=== PATIENT | female | born 1950 | race Two or more races ===

== ENCOUNTER 2019-06-21 07:31 | Outpatient (CLI) | payer OTHER ==
[~2019-06-21] VITALS: Ht 165.1 cm; Wt 127.0 kg
[~2019-06-21 07:31] MED LIST: CATAFLAM50 MG PO; CLONAZEPAM0.5 MG; COZAAR25 MG; NORVASC5 MG; RANITIDINE HCL300 M1; ZOCOR40 MG; ZOLOFT100 MG
[2019-06-21] MEDS ORDERED: LIPO-FLAVONOID1 EACH PO (10:03)
[2019-06-21] MEDS ORDERED: FLONASE16 GM NASAL (10:05)
== END 2019-06-21 13:00 | disposition home or self-care (01) ==
LOC: OFIC 805 07:31
DX: H91.8X3 Other specified hearing loss, bilateral (principal); R42 Dizziness and giddiness; H93.13 Tinnitus, bilateral

== ENCOUNTER 2019-07-12 13:10 | Emergency (ER) | payer OTHER ==
[~2019-07-12] VITALS: Ht 167.6 cm; Wt 122.5 kg
[~2019-07-12 13:10] MED LIST changes: +FLONASE16 GM NASAL; +LIPO-FLAVONOID1 EACH PO
== END 2019-07-12 23:27 | disposition home or self-care (01) ==
LOC: ER 13:10
DX: S43.085A Other dislocation of left shoulder joint, initial encounter (principal); M25.512 Pain in left shoulder; X50.0XXA Overexertion from strenuous movement or load, initial encounter; Y93.B2 Activity, push-ups, pull-ups, sit-ups; Y92.89 Other specified places as the place of occurrence of the external cause; Y99.8 Other external cause status

== ENCOUNTER 2019-12-01 07:25 | Outpatient (CLI) | payer OTHER | END 2019-12-01 11:06 | disposition home or self-care (01) | LOC: NUCLEAR 07:25 | DX: I24.8 Other forms of acute ischemic heart disease (principal) | CPT/HCPCS: 78452; 93017; A9500; J0153 ==

== ENCOUNTER 2021-02-19 10:07 | Outpatient (CLI) | payer OTHER | END 2021-02-19 10:11 | disposition home or self-care (01) | LOC: NUCLEAR 10:07 | PROVIDERS: ATTEND Internal Medicine Cardiovascular Disease | DX: I73.9 Peripheral vascular disease, unspecified (principal) ==

== ENCOUNTER 2021-07-09 11:49 | Outpatient (CLI) | payer OTHER | END 2021-07-09 11:56 | disposition home or self-care (01) | LOC: SONOGRAMA 11:49 → MAMO-SONO 13:15 | PROVIDERS: ATTEND Internal Medicine Cardiovascular Disease | DX: M12.862 Other specific arthropathies, not elsewhere classified, left knee (principal); M25.562 Pain in left knee; M25.561 Pain in right knee ==

== ENCOUNTER 2021-12-31 10:51 | Outpatient (CLI) | payer OTHER | END 2021-12-31 10:58 | disposition home or self-care (01) | LOC: TOM 10:51 | PROVIDERS: ATTEND Internal Medicine Cardiovascular Disease | DX: R42 Dizziness and giddiness (principal) ==

== ENCOUNTER 2023-10-14 12:14 | Outpatient (CLI) | payer OTHER | END 2023-10-14 12:17 | disposition home or self-care (01) | LOC: SONOGRAMA 12:14 | PROVIDERS: ATTEND Internal Medicine Cardiovascular Disease | DX: M12.9 Arthropathy, unspecified (principal) ==

== ENCOUNTER 2024-01-07 08:49 | Outpatient (CLI) | payer OTHER | END 2024-01-07 09:00 | disposition home or self-care (01) | LOC: MRI 08:49 | DX: M54.12 Radiculopathy, cervical region (principal) | CPT/HCPCS: 72141 ==

== ENCOUNTER 2024-06-08 13:49 | Outpatient (CLI) | payer OTHER | END 2024-06-08 13:55 | disposition home or self-care (01) | LOC: RAD 13:49 | PROVIDERS: ATTEND Orthopaedic Surgery | DX: M75.121 Complete rotator cuff tear or rupture of right shoulder, not specified as traumatic (principal) ==

== ENCOUNTER 2025-03-15 10:56 | Outpatient (CLI) | payer OTHER | END 2025-03-15 11:01 | disposition home or self-care (01) | LOC: TOM 10:56 | PROVIDERS: ATTEND Internal Medicine Cardiovascular Disease | DX: R51.9 Headache, unspecified (principal); G30.9 Alzheimer's disease, unspecified ==

== ENCOUNTER → 2025-03-21 09:17 | Outpatient (CLI) | payer OTHER | END | disposition home or self-care (01) | LOC: NUCLEAR 09:17 | PROVIDERS: ATTEND Internal Medicine Cardiovascular Disease | DX: R41.2 Retrograde amnesia (principal) | CPT/HCPCS: 78803; A9557 ==

== ENCOUNTER 2025-09-12 09:51 | Outpatient (CLI) | payer OTHER | END 2025-09-12 09:52 | disposition home or self-care (01) | LOC: NUCLEAR 09:51 | PROVIDERS: ATTEND Internal Medicine Cardiovascular Disease | DX: I87.2 Venous insufficiency (chronic) (peripheral) (principal) ==

== ENCOUNTER 2025-09-14 09:54 | Outpatient (CLI) | payer OTHER | END 2025-09-14 09:55 | disposition home or self-care (01) | LOC: NUCLEAR 09:54 | PROVIDERS: ATTEND Internal Medicine Cardiovascular Disease | DX: I73.9 Peripheral vascular disease, unspecified (principal) ==